=== PATIENT | female | born 1935 | race Caucasian/White ===

== ENCOUNTER 2018-12-12 10:02 | Day surgery (SDC) | payer MEDICARE, MEDICAID ==
[2018-12-11 13:22] LABS: BASOPHILS % (AUTO) 0.5 % (0-1); EOSINOPHILS # (AUTO) 0.1 X10'3 (0-0.9); HEMATOCRIT 33.9 % (35.0-45.0); HEMOGLOBIN 11.4 g/dl (12.0-16.0); LYMPHOCYTES % (AUTO) 20.3 % (21-51); MEAN CORPUSCULAR HEMOGLOBIN 31.1 PG (27.0-31.0); MEAN CORPUSCULAR HGB CONC 33.6 g/dL (33.0-36.5); MEAN CORPUSCULAR VOLUME 92.6 FL (78-98); MEAN PLATELET VOLUME 8.4 FL (7.4-10.4); MONOCYTES # (AUTO) 0.4 X10'3 (0-0.9); MONOCYTES % (AUTO) 7.8 % (2-12); NEUTROPHILS # (AUTO) 3.3 X10'3 (1.8-7.7); NEUTROPHILS % (AUTO) 69.4 % (42-75); PLATELET COUNT 198 X10'3 (140-440); RED BLOOD COUNT 3.66 X10'6 (4.20-5.60); RED CELL DISTRIBUTION WIDTH 15.7 % (11.5-14.5); WHITE BLOOD COUNT 4.8 X10'3 (4.5-11.0)
[2018-12-11 13:41] LABS: ALANINE AMINOTRANSFERASE 24 U/L (12-78); ALBUMIN 3.2 G/DL (3.4-5.0); ALBUMIN/GLOBULIN RATIO 0.9 (1.1-1.5); ALKALINE PHOSPHATASE 67 IU/L (46-116); ANION GAP 10 (8-16); ASPARTATE AMINO TRANSFERASE 12 U/L (10-37); BILIRUBIN,TOTAL 0.3 MG/DL (0.1-1.0); BLOOD UREA NITROGEN 28 MG/DL (7-18); BUN/CREATININE RATIO 18.5 (6.6-38.0); CALCIUM 8.6 MG/DL (8.5-10.1); CHLORIDE 106 MMOL/L (99-107); CHOL/HDL RATIO 2.6 (0.00-4.99); CHOLESTEROL 133 MG/DL (0-200); CREATININE 1.51 MG/DL (0.40-0.90); GLUCOSE 75 MG/DL (70-104); HDL CHOLESTEROL 52 MG/DL (35-60); INR 1.1 INR; LDL CHOLESTEROL 66 MG/DL (50-100); PARTIAL THROMBOPLASTIN TIME 27 SECONDS (22-32); SODIUM 143 MMOL/L (135-145); TOTAL CARBON DIOXIDE 27.5 MMOL/L (24-32); TOTAL PROTEIN 6.8 G/DL (6.4-8.2); TRIGLYCERIDES 110 MG/DL (20-135); eGFR 33 ML/MIN
[~2018-12-12] VITALS: Ht 162.6 cm; Wt 68.0 kg
[2018-12-12] VITALS (13 sets, daily range): BP systolic 127–173; BP diastolic 61–85
[~2018-12-12 10:02] MED LIST: ASPI-612 PO; CLON1PAT15 TD; CLOP75TA35 PO; COL100C PO; CRAN1CAP10 PO; DIVA125T31 PO; DULO-31 PO; FURO40TA4 PO; HYDR-4069 PO; HYDR2AMP PO; INSU100C4 SQ; ISOS30TA6 PO; LANTUS SQ; LEVO75TA PO; LOP25T PO; MECL12.5 PO; NITR0.4T48 SL; ONDA4TAB9 SL; POLY17PO10 PO; PRIM50TA27 PO; ROSU5TAB PO
[2018-12-12] MEDS ORDERED: acetylcysteine 200 MG/ml 4ml vial PO PRN (10:30)
[2018-12-12] MEDS ORDERED: LORazepam 0.5 MG tablet PO PRN (10:30)
[2018-12-12] MEDS ORDERED: diphenhydrAMINE 25mg capsule PO PRN (10:30)
[2018-12-12] MEDS ORDERED: sod bicarbonate 150mEq in D5W 1,150 ML IV ONE (10:30)
[2018-12-12] MEDS ORDERED: PRIM50TA42 PO (10:54)
[2018-12-12] MEDS ORDERED: ROSU10TA2 PO (10:54)
[2018-12-12] MEDS ORDERED: FURO-150 PO (10:54)
[2018-12-12] MEDS: normal saline 1000ml 1,000 ML IV SCH ×2 (11:29→20:40)
[2018-12-12] MEDS ORDERED: LIDOcaine 1% (10mg/ml)w/preservative injection 20ml MDV ONE (11:59)
[2018-12-12] MEDS ORDERED: midazolam 2 mg/2 ml injection ONE (11:59)
[2018-12-12] MEDS ORDERED: iohexol 350MG/ML 100ml bottle IV ONE ×2 (11:59→12:54)
[2018-12-12] MEDS ORDERED: nitroGLYCERIN-Tridil 50MG/D5W 250 ML IV ONE (11:59)
[2018-12-12] MEDS ORDERED: heparin 1,000unit/ml 10ml vial 10 ML ONE (11:59)
[2018-12-12] MEDS ORDERED: fentaNYL/PF 50MCG/1 ML 2ML syringe ONE (11:59)
[2018-12-12] MEDS ORDERED: iohexol 350 MG/ML 50ML vial IV ONE (11:59)
[2018-12-12] MEDS ORDERED: hydrALAZINE 20mg/ml inj. IV ONE (13:18)
[2018-12-12] MEDS ORDERED: HYDROmorphone 1 mg/ml syringe IV PRN (15:15)
[2018-12-12] MEDS: hydrALAZINE 20mg/ml inj. IV SCH ×3 (15:30→23:53)
[2018-12-12] MEDS: sod bicarbonate 150mEq in D5W 1,150 ML IV SCH ×2 (15:42→22:55)
--- NOTE | 2018-12-12 19:11 | NUR ---
Problems reprioritized. Patient report given, questions answered & plan of care reviewed with AMOL ABRAMS.
[2018-12-12] MEDS ORDERED: ondansetron 4mg rapidly disintigrating tab PO PRN (19:25)
[2018-12-12] MEDS ORDERED: polyethylene glycol 3350 17gm powd pack PO PRN (19:25)
[2018-12-12] MEDS ORDERED: nitroGLYCERIN 0.4mg SUBLingual tab SL PRN (19:25)
[2018-12-12] MEDS ORDERED: primidone 50mg tablet PO PRN (19:30)
[2018-12-12] MEDS ORDERED: insulin Lispro (HumaLOG) vial - multi-dose SQ SCH (19:35)
[2018-12-12] MEDS ORDERED: HYDROmorphone 2mg tablet PO PRN (19:35)
--- NOTE | 2018-12-12 20:57 | NUR ---
PT TRANSFERRED TO PCU AND BEDSIDE REPORT GIVEN. BELONGINGS BAG ON IT'S WAY TO ROOM 3014B NOW.
[2018-12-12] MEDS ORDERED: insulin glargine (Lantus) pen - multi-dose SQ SCH (21:00)
[2018-12-12] MEDS ORDERED: divalproex sodium 250mg tablet PO SCH (21:00)
[2018-12-12] MEDS: hydrALAZINE 25 MG tablet PO SCH (21:24)
[2018-12-12] MEDS: docusate sod 100mg capsule PO SCH (21:24)
--- NOTE | 2018-12-12 22:13 | NUR ---
Patient admitted via stretcher from short stay and oriented to room 3014B- Left groin site clean dry and intact. Patient with complaints of headache (chronically has them at home she stated) PRN pain medication administered. NS @ 100 mls in left PIV. All VSS BP 170/63 - metoprolol PO given. Will continue to monitor closely.
[2018-12-13 03:00] VITALS: BP 137/53
[2018-12-13] MEDS: hydrALAZINE 20mg/ml inj. IV SCH ×2 (03:04→08:00)
[2018-12-13 06:00] VITALS: BP 157/58
[2018-12-13] MEDS ORDERED: ROSU20TA2 PO (06:29)
[2018-12-13] MEDS: sod bicarbonate 150mEq in D5W 1,150 ML IV SCH (06:35)
[2018-12-13] MEDS: normal saline 1000ml 1,000 ML IV SCH ×2 (06:40→08:03)
[2018-12-13] MEDS ORDERED: levoTHYROXINE 75mcg tablet PO SCH (07:00)
[2018-12-13] MEDS: hydrALAZINE 25 MG tablet PO SCH (07:33)
[2018-12-13] MEDS: docusate sod 100mg capsule PO SCH (07:34)
[2018-12-13] MEDS ORDERED: furosemide 20MG tablet PO SCH (08:00)
[2018-12-13] MEDS ORDERED: isosorbide mononitrate 30mg tab.SR.24H PO SCH (08:00)
[2018-12-13] MEDS ORDERED: atorvastatin 20mg tablet PO SCH (08:00)
[2018-12-13] MEDS ORDERED: aspirin 81mg tab.chew PO SCH (08:30)
--- NOTE | 2018-12-13 10:44 | NUR ---
PROVIDED PATIENT WITH DISCHARGE INSTRUCTIONS WELL NEW PRESCRIPTION INFORMATION. PATIENT MADE AWARE SHE SHOULD FOLLOW UP WITH DR. RICHARDS IN 2 WEEKS WELL HER PRIMARY CARE PHYSICIAN. PATIENT DENIED ANY QUESTIONS OR CONCERNS. PATIENT'S CAREGIVER PRESENT AT BEDSIDE TO RECEIVE INSTRUCTIONS. IV REMOVED, CATHETER INTACT WITH MINIMAL BLEEDING, CLEAN GAUZE APPLIED AND SECURED WITH TAPE. TELE MONITOR REMOVED AND RETURNED TO [employer]. PATIENT WILL GO HOME VIA PRIVATE VEHICLE ONCE [facility] DELIVERS HER MEDICATION.
== END 2018-12-13 12:34 | disposition home or self-care (01) ==
LOC: SSTAY O 10:02 → PCU 3S 20:51 → SSTAY O 12-13 12:34
PROVIDERS: ATTEND Internal Medicine Cardiovascular Disease
DX: I25.10 Atherosclerotic heart disease of native coronary artery without angina pectoris (principal); E11.22 Type 2 diabetes mellitus with diabetic chronic kidney disease; I13.0 Hypertensive heart and chronic kidney disease with heart failure and stage 1 through stage 4 chronic kidney disease, or unspecified chronic kidney disease; N18.4 Chronic kidney disease, stage 4 (severe); I50.9 Heart failure, unspecified; E78.5 Hyperlipidemia, unspecified; Z95.0 Presence of cardiac pacemaker; Z98.890 Other specified postprocedural states; Z79.4 Long term (current) use of insulin; D64.9 Anemia, unspecified; Z90.49 Acquired absence of other specified parts of digestive tract; Z98.49 Cataract extraction status, unspecified eye; Z96.1 Presence of intraocular lens
CPT/HCPCS: 36415; 80053; 80061; 82948; 85025; 85610; 85730; 93005; 93461; 99152; 99153; A6257; J0360; J1170; J1644; J2001; J2250; J3010; J7030; Q0163; Q9967; A4620; C1769; G0378; J1815; J3490

== ENCOUNTER 2019-07-17 09:55 | Day surgery (SDC) | payer MEDICARE, MEDICAID ==
[2019-07-16 11:54] LABS: BASOPHILS % (AUTO) 0.3 % (0-1); EOSINOPHILS # (AUTO) 0.1 X10'3 (0-0.9); HEMATOCRIT 33.6 % (35.0-45.0); HEMOGLOBIN 11.4 g/dl (12.0-16.0); LYMPHOCYTES # (AUTO) 1.1 X10'3 (1.1-4.8); LYMPHOCYTES % (AUTO) 15.9 % (21-51); MEAN CORPUSCULAR HEMOGLOBIN 31.8 PG (27.0-31.0); MEAN CORPUSCULAR HGB CONC 33.9 g/dL (33.0-36.5); MEAN CORPUSCULAR VOLUME 93.7 FL (78-98); MONOCYTES # (AUTO) 0.5 X10'3 (0-0.9); MONOCYTES % (AUTO) 7.2 % (2-12); NEUTROPHILS # (AUTO) 5.2 X10'3 (1.8-7.7); NEUTROPHILS % (AUTO) 75.6 % (42-75); PLATELET COUNT 172 X10'3 (140-440); RED BLOOD COUNT 3.58 X10'6 (4.20-5.60); RED CELL DISTRIBUTION WIDTH 15.2 % (11.5-14.5); WHITE BLOOD COUNT 6.9 X10'3 (4.5-11.0)
[2019-07-16 12:01] LABS: PARTIAL THROMBOPLASTIN TIME 26 SECONDS (22-32)
[2019-07-16 12:02] LABS: ALBUMIN 3.4 G/DL (3.4-5.0); ANION GAP 5 (8-16); BLOOD UREA NITROGEN 34 MG/DL (7-18); BUN/CREATININE RATIO 19.5 (6.6-38.0); CALCIUM 8.9 MG/DL (8.5-10.1); CHLORIDE 104 MMOL/L (99-107); CREATININE 1.74 MG/DL (0.40-0.90); GLUCOSE 244 MG/DL (70-104); POTASSIUM 4.9 MMOL/L (3.5-5.1); SODIUM 138 MMOL/L (135-145); TOTAL CARBON DIOXIDE 28.9 MMOL/L (24-32); eGFR 28 ML/MIN
[2019-07-17] VITALS (10 sets, daily range): BP systolic 125–149; BP diastolic 40–78
[~2019-07-17] VITALS: Ht 165.1 cm; Wt 66.4 kg
[~2019-07-17 09:55] MED LIST changes: -CLON1PAT15 TD; -CLOP75TA35 PO; -DULO-31 PO; +FURO-150 PO; -FURO40TA4 PO; -LOP25T PO; -MECL12.5 PO; -PRIM50TA27 PO; +PRIM50TA3 PO; +ROSU20TA2 PO; -ROSU5TAB PO
[2019-07-17] MEDS ORDERED: normal saline 1,000 ML IV SCH (10:15)
[2019-07-17] MEDS ORDERED: cefazolin/dext.iso 2gm/50ml 50 ML IV ONE (10:15)
[2019-07-17] MEDS ORDERED: CLOP75TA15 PO (10:34)
[2019-07-17] MEDS ORDERED: MULT-933 PO (10:34)
[2019-07-17] MEDS ORDERED: D-MA1POW (10:34)
[2019-07-17] MEDS ORDERED: FURO-150 PO (10:34)
[2019-07-17] MEDS ORDERED: midazolam 2 mg/2 ml injection ONE (12:43)
[2019-07-17] MEDS ORDERED: fentaNYL/PF 50MCG/1 ML 2ML syringe ONE (12:43)
[2019-07-17] MEDS ORDERED: LIDOcaine 1% W/epiNEPHrine 1:100,000 20ml vial ONE (12:44)
[2019-07-17] MEDS ORDERED: ceFAZolin 1000mg inj ONE (12:52)
[2019-07-17] MEDS ORDERED: HYDROcodone/acetaminophen 10/325mg tab PO PRN (14:40)
[2019-07-17] MEDS ORDERED: normal saline 1000ml 1,000 ML IV SCH (14:40)
[2019-07-17] MEDS ORDERED: vancomycin/NS 1 GM ADD-VANTAGE 250 ML X 1 DOSE IV ONE (14:40)
[2019-07-17] MEDS ORDERED: HYDROcodone/acetaminophen 5mg/325mg tablet PO PRN (14:40)
[2019-07-17] MEDS ORDERED: OXAZEpam 15mg capsule PO PRN (14:40)
== END 2019-07-17 18:00 | disposition home or self-care (01) ==
LOC: SSTAY O 09:55
PROVIDERS: ATTEND Internal Medicine Cardiovascular Disease
DX: Z45.010 Encounter for checking and testing of cardiac pacemaker pulse generator [battery] (principal); I25.10 Atherosclerotic heart disease of native coronary artery without angina pectoris; E11.9 Type 2 diabetes mellitus without complications; E78.5 Hyperlipidemia, unspecified; I11.0 Hypertensive heart disease with heart failure; I50.9 Heart failure, unspecified; Z95.1 Presence of aortocoronary bypass graft; Z79.01 Long term (current) use of anticoagulants; Z79.82 Long term (current) use of aspirin; Z79.899 Other long term (current) drug therapy
CPT/HCPCS: 33229; 36415; 80048; 82948; 85025; 85610; 85730; 93005; 99152; 99153; C2621; J0690; J2250; J3010; J3370; J7030; A4620; A6449

== ENCOUNTER 2019-08-27 15:18 | Outpatient (CLI) | payer MEDICARE, MEDICAID ==
[~2019-08-27 15:18] MED LIST changes: +CLOP75TA15 PO; -COL100C PO; -CRAN1CAP10 PO; +D-MA1POW; -DIVA125T31 PO; +MULT-933 PO; -ONDA4TAB9 SL; -POLY17PO10 PO
[2019-08-27] MEDS ORDERED: ROSU10TA28 PO (18:57)
[2019-08-27] MEDS ORDERED: DIVA250T8 PO (18:57)
[2019-08-27] MEDS ORDERED: OMEP-50 PO (18:57)
[2019-08-27] MEDS ORDERED: D-MA1POW PO (18:57)
[2019-08-27] MEDS ORDERED: [UNRECOGNIZED DRUG - CODE] (19:04)
[2019-08-27] MEDS ORDERED: HYDR4TAB45 PO (19:04)
[2019-08-27] MEDS ORDERED: KRIL500C PO (19:04)
== END 2019-08-27 23:59 | disposition home or self-care (01) ==
LOC: VAS 15:18
PROVIDERS: ATTEND Internal Medicine Cardiovascular Disease
DX: I70.292 Other atherosclerosis of native arteries of extremities, left leg (principal); I11.0 Hypertensive heart disease with heart failure; I50.9 Heart failure, unspecified; J44.9 Chronic obstructive pulmonary disease, unspecified; E11.9 Type 2 diabetes mellitus without complications; Z95.1 Presence of aortocoronary bypass graft; Z87.891 Personal history of nicotine dependence; Z95.820 Peripheral vascular angioplasty status with implants and grafts
CPT/HCPCS: 93926; 93971

== ENCOUNTER 2019-08-27 16:47 | Inpatient (IN) | payer MEDICARE, MEDICAID ==
[~2019-08-27] VITALS: Ht 165.1 cm; Wt 72.6 kg
[2019-08-27 17:35] LABS: BASOPHILS % (AUTO) 0.5 % (0-1); EOSINOPHILS # (AUTO) 0.1 X10'3 (0-0.9); EOSINOPHILS % (AUTO) 2.4 % (0-6); HEMATOCRIT 36.2 % (35.0-45.0); HEMOGLOBIN 12.2 g/dl (12.0-16.0); LYMPHOCYTES # (AUTO) 1.1 X10'3 (1.1-4.8); LYMPHOCYTES % (AUTO) 22.3 % (21-51); MEAN CORPUSCULAR HEMOGLOBIN 31.6 PG (27.0-31.0); MEAN CORPUSCULAR HGB CONC 33.8 g/dL (33.0-36.5); MEAN CORPUSCULAR VOLUME 93.6 FL (78-98); MEAN PLATELET VOLUME 9.1 FL (7.4-10.4); MONOCYTES # (AUTO) 0.4 X10'3 (0-0.9); MONOCYTES % (AUTO) 8.4 % (2-12); NEUTROPHILS # (AUTO) 3.4 X10'3 (1.8-7.7); NEUTROPHILS % (AUTO) 66.4 % (42-75); PLATELET COUNT 180 X10'3 (140-440); RED BLOOD COUNT 3.86 X10'6 (4.20-5.60); RED CELL DISTRIBUTION WIDTH 14.7 % (11.5-14.5); WHITE BLOOD COUNT 5.1 X10'3 (4.5-11.0)
[2019-08-27 17:46] LABS: PARTIAL THROMBOPLASTIN TIME 25 SECONDS (22-32)
[2019-08-27 17:59] LABS: ALANINE AMINOTRANSFERASE 18 U/L (12-78); ALBUMIN 3.7 G/DL (3.4-5.0); ALBUMIN/GLOBULIN RATIO 0.9 (1.1-1.5); ALKALINE PHOSPHATASE 72 IU/L (46-116); ANION GAP 7 (8-16); ASPARTATE AMINO TRANSFERASE 22 U/L (10-37); BILIRUBIN,TOTAL 0.3 MG/DL (0.1-1.0); BLOOD UREA NITROGEN 43 MG/DL (7-18); BUN/CREATININE RATIO 24.4 (6.6-38.0); CALCIUM 8.9 MG/DL (8.5-10.1); CHLORIDE 105 MMOL/L (99-107); CREATININE 1.76 MG/DL (0.40-0.90); GLUCOSE 75 MG/DL (70-104); POTASSIUM 4.2 MMOL/L (3.5-5.1); SODIUM 141 MMOL/L (135-145); TOTAL CARBON DIOXIDE 29.1 MMOL/L (24-32); TOTAL PROTEIN 7.6 G/DL (6.4-8.2); eGFR 28 ML/MIN
[2019-08-27] MEDS ORDERED: ROSU10TA28 PO (18:57)
[2019-08-27] MEDS ORDERED: DIVA250T8 PO (18:57)
[2019-08-27] MEDS ORDERED: D-MA1POW PO (18:57)
[2019-08-27] MEDS ORDERED: OMEP-50 PO (18:57)
[2019-08-27] MEDS ORDERED: KRIL500C PO (19:04)
[2019-08-27] MEDS ORDERED: [UNRECOGNIZED DRUG - CODE] (19:04)
[2019-08-27] MEDS ORDERED: HYDR4TAB45 PO (19:04)
[2019-08-27] MEDS ORDERED: heparin 10,000 units/1 ML INJ IV ONE (19:50)
[2019-08-27] MEDS ORDERED: mag hydrox/Alum hydrox/simeth 30ml oral suspension PO PRN (19:50)
[2019-08-27] MEDS ORDERED: acetaminophen 325mg tablet PO PRN (19:50)
[2019-08-27] MEDS ORDERED: magnesium hydroxide 30ml (MOM) UD suspension PO PRN (19:50)
[2019-08-27] MEDS ORDERED: heparin 10,000 units/1 ML INJ IV PRN (19:50)
[2019-08-27] MEDS ORDERED: dextrose 50%-water 50ml dispensing syringe IV PRN ×2 (19:55)
[2019-08-27] MEDS ORDERED: glucagon, human recombinant 1mg kit SUBCUT PRN (19:55)
[2019-08-27] MEDS ORDERED: MESSAGE TO PHARMACY PO ONE (19:55)
[2019-08-27] MEDS ORDERED: dextrose ORAL solution 15 GM/59 ML bottle PO PRN (19:55)
[2019-08-27] MEDS: heparin 25,000 UNIT/250ml bag 250 ML IV SCH (20:21)
[2019-08-27] MEDS: normal saline 1000ml 1,000 ML IV SCH (20:23)
--- NOTE | 2019-08-27 20:35 | NUR ---
ATTEMPTED TO GIVE REPORT, WAS TOLD THEY WOULD CALL ME BACK - NO SPECIFIC TIME GIVEN
--- NOTE | 2019-08-27 20:52 | NUR ---
Patient in room ED 14. I have received report from Edel ABRAMS and had the opportunity to ask questions and assume patient care.
[2019-08-27 21:00] VITALS: BP 160/64
[2019-08-27] MEDS: insulin glargine (Lantus) pen - multi-dose SQ SCH (21:00)
--- NOTE | 2019-08-27 21:00 | NUR ---
Patient admitted to floor at 2100. Vital signs stable. Patient oriented to unit policies, call light, meal times, medication times, and phone. Bed low and locked. Tele placed on patient. Nasal swab collected.
[2019-08-27] MEDS: dextrose ORAL solution 15 GM/59 ML bottle PO PRN (21:26)
[2019-08-28] VITALS (11 sets, daily range): BP systolic 126–171; BP diastolic 47–66
[2019-08-28 02:41] LABS: BASOPHILS % (AUTO) 0.4 % (0-1); EOSINOPHILS # (AUTO) 0.1 X10'3 (0-0.9); EOSINOPHILS % (AUTO) 3.1 % (0-6); HEMATOCRIT 31.8 % (35.0-45.0); HEMOGLOBIN 10.8 g/dl (12.0-16.0); LYMPHOCYTES # (AUTO) 1.2 X10'3 (1.1-4.8); LYMPHOCYTES % (AUTO) 26.1 % (21-51); MEAN CORPUSCULAR HEMOGLOBIN 31.9 PG (27.0-31.0); MEAN CORPUSCULAR HGB CONC 33.9 g/dL (33.0-36.5); MEAN CORPUSCULAR VOLUME 94.3 FL (78-98); MEAN PLATELET VOLUME 9.2 FL (7.4-10.4); MONOCYTES # (AUTO) 0.4 X10'3 (0-0.9); MONOCYTES % (AUTO) 8.4 % (2-12); NEUTROPHILS # (AUTO) 2.8 X10'3 (1.8-7.7); PLATELET COUNT 147 X10'3 (140-440); RED BLOOD COUNT 3.38 X10'6 (4.20-5.60); RED CELL DISTRIBUTION WIDTH 14.9 % (11.5-14.5); WHITE BLOOD COUNT 4.6 X10'3 (4.5-11.0)
[2019-08-28 02:53] LABS: ALANINE AMINOTRANSFERASE 16 U/L (12-78); ALBUMIN/GLOBULIN RATIO 0.9 (1.1-1.5); ALKALINE PHOSPHATASE 63 IU/L (46-116); ANION GAP 6 (8-16); ASPARTATE AMINO TRANSFERASE 17 U/L (10-37); BILIRUBIN,TOTAL 0.2 MG/DL (0.1-1.0); BLOOD UREA NITROGEN 44 MG/DL (7-18); CALCIUM 8.5 MG/DL (8.5-10.1); CHLORIDE 109 MMOL/L (99-107); CHOL/HDL RATIO 2.4 (0.00-4.99); CHOLESTEROL 121 MG/DL (0-200); CREATININE 1.69 MG/DL (0.40-0.90); GLUCOSE 188 MG/DL (70-104); HDL CHOLESTEROL 50 MG/DL (35-60); LDL CHOLESTEROL 61 MG/DL (50-100); POTASSIUM 3.8 MMOL/L (3.5-5.1); SODIUM 144 MMOL/L (135-145); TOTAL CARBON DIOXIDE 29.4 MMOL/L (24-32); TOTAL PROTEIN 6.4 G/DL (6.4-8.2); TRIGLYCERIDES 78 MG/DL (20-135); eGFR 29 ML/MIN
--- NOTE | 2019-08-28 06:09 | NUR ---
Problems reprioritized. Patient report given, questions answered & plan of care reviewed with Jessica ABRAMS and Gisel ABRAMS.
--- NOTE | 2019-08-28 06:38 | NUR ---
Patient in room PCU 3017. I have received report from JOSE ALBERTO Owens and had the opportunity to ask questions and assume patient care.
[2019-08-28] MEDS ORDERED: HYDROmorphone 2mg tablet PO PRN (08:00)
[2019-08-28] MEDS: isosorbide mononitrate 30mg tab.SR.24H PO SCH (08:01)
[2019-08-28] MEDS: multivitamins, therapeutics tablet PO SCH (08:01)
[2019-08-28] MEDS: atorvastatin 10mg tablet PO SCH (08:01)
[2019-08-28] MEDS: clopidogrel 75mg tablet PO SCH (08:01)
[2019-08-28] MEDS: levoTHYROXINE 75mcg tablet PO SCH (08:01)
[2019-08-28] MEDS: divalproex sod 250mg ER (24-hour) tablet PO SCH (08:02)
[2019-08-28] MEDS ORDERED: midazolam 2 mg/2 ml injection IV PRN (09:50)
[2019-08-28] MEDS ORDERED: heparin 1,000 UNITS/NS 500ml 500 ML ICATH ONE (09:50)
[2019-08-28] MEDS ORDERED: LIDOcaine 1%/PF 5ML 10 MG/ML VIAL SQ ONE (09:50)
[2019-08-28] MEDS ORDERED: fentaNYL/PF 50MCG/1 ML 2ML syringe IV PRN (09:50)
[2019-08-28] MEDS ORDERED: FLU VACC QS2019-20 36MOS UP/PF 60 MCG/0.5 ML SYRINGE IMVAC ONE (10:00)
[2019-08-28] MEDS ORDERED: midazolam 2 mg/2 ml injection ONE ×2 (10:04→11:02)
[2019-08-28] MEDS ORDERED: LIDOcaine 1%/PF 5ML 10 MG/ML VIAL ONE (10:04)
[2019-08-28] MEDS ORDERED: iohexol 300mg/ml 100ml inj. ONE (10:04)
[2019-08-28] MEDS ORDERED: heparin 1,000 UNITS/NS 500ml 500 ML ONE (10:04)
[2019-08-28] MEDS ORDERED: fentaNYL/PF 50MCG/1 ML 2ML syringe ONE ×2 (10:04→11:02)
[2019-08-28] MEDS ORDERED: ondansetron/PF 4mg/2ml inj ONE (11:59)
[2019-08-28] MEDS: normal saline 1000ml 1,000 ML IV SCH ×2 (12:23→22:23)
--- NOTE | 2019-08-28 13:42 | NUR ---
Received report from angio RN. Pt in room 2009. Pt with sheath in right groin. + pedal pulse in right foot on palpation. Left pedal pulse via doppler. Pt nauseated with emesis x 1.
--- NOTE | 2019-08-28 14:10 | NUR ---
right groin without hematoma, soft to touch
--- NOTE | 2019-08-28 15:15 | NUR ---
PTT<40. right groin without hematoma, a little oozing same as she has been. Art line to be removed
--- NOTE | 2019-08-28 16:02 | NUR ---
Art line removed from right groin. Pressure held for 20minutes. pressure dressing placed. groin soft, no bleeding noted, positive palpable pedal pulse on right.
--- NOTE | 2019-08-28 16:30 | NUR ---
IV Cardizem drip discontinued at 1630.
--- NOTE | 2019-08-28 16:58 | NUR ---
Problems reprioritized. Patient report given, questions answered & plan of care reviewed with Sallie ABRAMS.
--- NOTE | 2019-08-28 17:02 | NUR ---
DM consult A1c is 9, She will need written DM education handout with verbal review and referral to outpatient DM education class on Monday morning prior to discharge. Addendum: 08/28/19 at [address] Amended: Links added.
--- NOTE | 2019-08-28 17:10 | NUR ---
1650 received report from JOSE ALBERTO Blake from the ICU. Pt arrived to unit stable and alert and oriented. No hematoma or flank pain noted with pressure dressing applied to right femoral site. Palpable pulses on bilateral feet using a doppler.
--- NOTE | 2019-08-28 17:15 | NUR ---
Pt transferred to PCU via bed and slide over to PCU bed. Pt transferred in stable condition, right groin soft without hematoma
--- NOTE | 2019-08-28 17:41 | NUR ---
Paged Dr. Mark: PAGER ID: [phone] MESSAGE: RE: Shirley Ha [id number]. Notified by television equipment operator that patient had a 12 beat run of v-tach. Patient also had a run of v-tach during angiogram today. Patient asymptomatic. Jessica [phone]
--- NOTE | 2019-08-28 18:25 | NUR ---
Patient in room PCU 3017. I have received report from Jessica ABRAMS and Gisel RN and had the opportunity to ask questions and assume patient care.
[2019-08-28] MEDS: heparin 25,000 UNIT/250ml bag 250 ML IV SCH (18:34)
--- NOTE | 2019-08-28 19:02 | NUR ---
[place]rientee documentation: I have reviewed and agree with all interventions, assessments performed and documented by Gisel ABRAMS. [place] Medication Administration: For this medication-pass time frame, all medication were reviewed, dispensed, administered and documented per hospital policy by JOSE ALBERTO Batres.
--- NOTE | 2019-08-28 19:02 | NUR ---
Right pedal pulse palpable. Left pedal pulse intact by doppler.
[2019-08-28] MEDS: insulin glargine (Lantus) pen - multi-dose SQ SCH (21:00)
[2019-08-29 03:00] VITALS: BP 118/58
[2019-08-29 06:00] VITALS: BP 143/55
--- NOTE | 2019-08-29 06:00 | NUR ---
Patient in room PCU 3017. I have received report from Katerine ABRAMS and had the opportunity to ask questions and assume patient care.
[2019-08-29 06:16] LABS: BASOPHILS % (AUTO) 0.3 % (0-1); EOSINOPHILS % (AUTO) 0.8 % (0-6); HEMATOCRIT 30.9 % (35.0-45.0); HEMOGLOBIN 10.4 g/dl (12.0-16.0); LYMPHOCYTES % (AUTO) 18.3 % (21-51); MEAN CORPUSCULAR HEMOGLOBIN 31.8 PG (27.0-31.0); MEAN CORPUSCULAR HGB CONC 33.7 g/dL (33.0-36.5); MEAN CORPUSCULAR VOLUME 94.3 FL (78-98); MEAN PLATELET VOLUME 9.5 FL (7.4-10.4); MONOCYTES # (AUTO) 0.5 X10'3 (0-0.9); MONOCYTES % (AUTO) 8.6 % (2-12); NEUTROPHILS # (AUTO) 3.9 X10'3 (1.8-7.7); PLATELET COUNT 148 X10'3 (140-440); RED BLOOD COUNT 3.28 X10'6 (4.20-5.60); WHITE BLOOD COUNT 5.4 X10'3 (4.5-11.0)
[2019-08-29 06:54] LABS: ALANINE AMINOTRANSFERASE 36 U/L (12-78); ALBUMIN 3.1 G/DL (3.4-5.0); ALKALINE PHOSPHATASE 64 IU/L (46-116); ANION GAP 14 (8-16); ASPARTATE AMINO TRANSFERASE 29 U/L (10-37); BILIRUBIN,TOTAL 0.3 MG/DL (0.1-1.0); BLOOD UREA NITROGEN 45 MG/DL (7-18); BUN/CREATININE RATIO 24.5 (6.6-38.0); CALCIUM 8.3 MG/DL (8.5-10.1); CHLORIDE 105 MMOL/L (99-107); CREATININE 1.84 MG/DL (0.40-0.90); GLUCOSE 120 MG/DL (70-104); POTASSIUM 4.3 MMOL/L (3.5-5.1); SODIUM 142 MMOL/L (135-145); TOTAL PROTEIN 6.3 G/DL (6.4-8.2); eGFR 26 ML/MIN
[2019-08-29] MEDS: atorvastatin 10mg tablet PO SCH (08:22)
[2019-08-29] MEDS: levoTHYROXINE 75mcg tablet PO SCH (08:22)
[2019-08-29] MEDS: divalproex sod 250mg ER (24-hour) tablet PO SCH (08:22)
[2019-08-29] MEDS: multivitamins, therapeutics tablet PO SCH (08:22)
[2019-08-29] MEDS: isosorbide mononitrate 30mg tab.SR.24H PO SCH (08:22)
[2019-08-29] MEDS: clopidogrel 75mg tablet PO SCH (08:22)
[2019-08-29] MEDS: normal saline 1000ml 1,000 ML IV SCH ×2 (08:23→19:47)
[2019-08-29] MEDS: oxyCODONE/APAP 5-325mg tablet PO PRN ×2 (08:37→15:43)
[2019-08-29] MEDS: simethicone 80mg chew tab PO PRN ×3 (08:37→22:10)
[2019-08-29 08:41] LABS: LIPASE 68 U/L (73-393)
[2019-08-29 11:00] VITALS: BP 132/53
--- NOTE | 2019-08-29 14:42 | NUR ---
F/u: Pt seen by RD for written/verbal DM ed w/ RD contact information provided. Pt reports sight is getting worse and has trouble reading GLU level results when she checks them. Pt reports has caregiver who helps w/ medication management and is currently in transition to new DM MD. Currently only taking 27 units Lantus/day for DM management since needs to have new MD prescriptions for Novolog which she previously took in addition to Lantus per pt report. RD encouraged to attend CDE course and for pt/caregiver to contact RD if further questions/concerns. DM consult A1c is 9, She will need written DM education handout with verbal review and referral to outpatient DM education class on Monday morning prior to discharge. Addendum: 08/29/19 at [address] Amended: Links added.
[2019-08-29 15:00] VITALS: BP 115/55
[2019-08-29] MEDS: insulin Lispro (HumaLOG) vial - multi-dose SQ SCH ×2 (15:19→19:35)
--- NOTE | 2019-08-29 17:10 | NUR ---
Paged to clarify IVF orders. Has 2 different orders for NS @ 20ml/hr and 100ml/hr. PAGER ID: [phone] MESSAGE: [phone], Nithin Ha. Has 2 different orders for NS. Pls verify if you want her running at 20ml/hr or 100ml/hr. Has been running 20ml/hr per NOC report. Thanks! Dayna [phone]
[2019-08-29 18:00] VITALS: BP 133/60
--- NOTE | 2019-08-29 18:00 | NUR ---
Patient in room PCU 3017. I have received report from DUSTY ABRAMS and had the opportunity to ask questions and assume patient care.
--- NOTE | 2019-08-29 19:14 | NUR ---
Problems reprioritized. Patient report given, questions answered & plan of care reviewed with Rosa ABRAMS.
[2019-08-29 22:00] VITALS: BP 118/55
--- NOTE | 2019-08-29 22:00 | NUR ---
Called Serene and crystal DC'd order for NS at 100 mls/hr, kept the order for NS at 20 mls/hr, he also added carb control to her diet
[2019-08-29] MEDS: insulin glargine (Lantus) pen - multi-dose SQ SCH (22:03)
[2019-08-30 02:00] VITALS: BP 139/66
[2019-08-30 06:00] VITALS: BP 137/66
--- NOTE | 2019-08-30 06:00 | NUR ---
Patient in room PCU 3017. I have received report from Rosa ABRAMS and had the opportunity to ask questions and assume patient care.
--- NOTE | 2019-08-30 06:00 | NUR ---
Problems reprioritized. Patient report given, questions answered & plan of care reviewed with DUSTY ABRAMS.
[2019-08-30 06:09] LABS: BASOPHILS % (AUTO) 0.3 % (0-1); EOSINOPHILS # (AUTO) 0.1 X10'3 (0-0.9); EOSINOPHILS % (AUTO) 2.5 % (0-6); HEMATOCRIT 29.4 % (35.0-45.0); HEMOGLOBIN 9.9 g/dl (12.0-16.0); LYMPHOCYTES # (AUTO) 1.1 X10'3 (1.1-4.8); LYMPHOCYTES % (AUTO) 20.3 % (21-51); MEAN CORPUSCULAR HEMOGLOBIN 31.6 PG (27.0-31.0); MEAN CORPUSCULAR HGB CONC 33.6 g/dL (33.0-36.5); MEAN PLATELET VOLUME 9.6 FL (7.4-10.4); MONOCYTES # (AUTO) 0.6 X10'3 (0-0.9); NEUTROPHILS # (AUTO) 3.7 X10'3 (1.8-7.7); NEUTROPHILS % (AUTO) 66.9 % (42-75); PLATELET COUNT 131 X10'3 (140-440); RED BLOOD COUNT 3.12 X10'6 (4.20-5.60); RED CELL DISTRIBUTION WIDTH 15.1 % (11.5-14.5); WHITE BLOOD COUNT 5.6 X10'3 (4.5-11.0)
[2019-08-30 06:39] LABS: ALANINE AMINOTRANSFERASE 29 U/L (12-78); ALBUMIN 2.9 G/DL (3.4-5.0); ALBUMIN/GLOBULIN RATIO 0.9 (1.1-1.5); ALKALINE PHOSPHATASE 56 IU/L (46-116); ANION GAP 9 (8-16); ASPARTATE AMINO TRANSFERASE 22 U/L (10-37); BILIRUBIN,TOTAL 0.2 MG/DL (0.1-1.0); BLOOD UREA NITROGEN 57 MG/DL (7-18); BUN/CREATININE RATIO 23.8 (6.6-38.0); CALCIUM 8.2 MG/DL (8.5-10.1); CHLORIDE 105 MMOL/L (99-107); GLUCOSE 117 MG/DL (70-104); POTASSIUM 4.8 MMOL/L (3.5-5.1); SODIUM 138 MMOL/L (135-145); TOTAL CARBON DIOXIDE 24.1 MMOL/L (24-32); TOTAL PROTEIN 6.1 G/DL (6.4-8.2); eGFR 19 ML/MIN
[2019-08-30] MEDS: isosorbide mononitrate 30mg tab.SR.24H PO SCH (07:47)
[2019-08-30] MEDS: multivitamins, therapeutics tablet PO SCH (07:47)
[2019-08-30] MEDS: atorvastatin 10mg tablet PO SCH (07:47)
[2019-08-30] MEDS: simethicone 80mg chew tab PO PRN ×2 (07:47→17:13)
[2019-08-30] MEDS: levoTHYROXINE 75mcg tablet PO SCH (07:48)
[2019-08-30] MEDS: divalproex sod 250mg ER (24-hour) tablet PO SCH (07:48)
[2019-08-30] MEDS: clopidogrel 75mg tablet PO SCH (07:48)
[2019-08-30] MEDS: insulin Lispro (HumaLOG) vial - multi-dose SQ SCH ×3 (08:04→19:06)
[2019-08-30] MEDS: normal saline 1000ml 1,000 ML IV SCH ×2 (08:30→18:30)
[2019-08-30] MEDS ORDERED: diphenhydrAMINE 50 mg/ml inj IV PRN (08:50)
[2019-08-30] MEDS: oxyCODONE/APAP 5-325mg tablet PO PRN ×2 (09:28→19:41)
[2019-08-30 11:00] VITALS: BP 128/58
[2019-08-30 15:00] VITALS: BP 119/48
--- NOTE | 2019-08-30 18:00 | NUR ---
Problems reprioritized. Patient report given, questions answered & plan of care reviewed with Lori ABRAMS.
[2019-08-30 18:30] VITALS: BP 102/56
--- NOTE | 2019-08-30 19:04 | NUR ---
Received report from Saige ABRAMS pt is awake and alert on RA, speaking on the phone
[2019-08-30] MEDS: insulin glargine (Lantus) pen - multi-dose SQ SCH (21:07)
[2019-08-30 22:30] VITALS: BP 119/58
[2019-08-31 02:30] VITALS: BP 135/62
[2019-08-31] MEDS: normal saline 1000ml 1,000 ML IV SCH ×2 (04:00→16:28)
[2019-08-31 06:00] VITALS: BP 134/65
--- NOTE | 2019-08-31 06:11 | NUR ---
Gave report to Saige ABRAMS pt is resting on RA in no apparent distress, call light and items of freq use within reach.
--- NOTE | 2019-08-31 07:00 | NUR ---
Patient in room PCU 3017. I have received report from Lori ABRAMS and had the opportunity to ask questions and assume patient care.
[2019-08-31 07:26] LABS: BASOPHILS % (AUTO) 0.3 % (0-1); EOSINOPHILS # (AUTO) 0.2 X10'3 (0-0.9); EOSINOPHILS % (AUTO) 3.1 % (0-6); HEMATOCRIT 30.5 % (35.0-45.0); HEMOGLOBIN 10.3 g/dl (12.0-16.0); LYMPHOCYTES # (AUTO) 1.2 X10'3 (1.1-4.8); LYMPHOCYTES % (AUTO) 19.6 % (21-51); MEAN CORPUSCULAR HEMOGLOBIN 32.2 PG (27.0-31.0); MEAN CORPUSCULAR HGB CONC 33.6 g/dL (33.0-36.5); MEAN CORPUSCULAR VOLUME 95.8 FL (78-98); MONOCYTES # (AUTO) 0.6 X10'3 (0-0.9); PLATELET COUNT 129 X10'3 (140-440); RED BLOOD COUNT 3.19 X10'6 (4.20-5.60); RED CELL DISTRIBUTION WIDTH 14.9 % (11.5-14.5); WHITE BLOOD COUNT 5.9 X10'3 (4.5-11.0)
[2019-08-31 07:47] LABS: ALANINE AMINOTRANSFERASE 25 U/L (12-78); ALBUMIN/GLOBULIN RATIO 0.9 (1.1-1.5); ALKALINE PHOSPHATASE 59 IU/L (46-116); ANION GAP 11 (8-16); ASPARTATE AMINO TRANSFERASE 18 U/L (10-37); BILIRUBIN,TOTAL 0.2 MG/DL (0.1-1.0); BLOOD UREA NITROGEN 60 MG/DL (7-18); BUN/CREATININE RATIO 27.4 (6.6-38.0); CHLORIDE 105 MMOL/L (99-107); CREATININE 2.19 MG/DL (0.40-0.90); GLUCOSE 117 MG/DL (70-104); POTASSIUM 4.7 MMOL/L (3.5-5.1); SODIUM 138 MMOL/L (135-145); TOTAL CARBON DIOXIDE 22.5 MMOL/L (24-32); TOTAL PROTEIN 6.3 G/DL (6.4-8.2); eGFR 22 ML/MIN
[2019-08-31] MEDS ORDERED: methylnaltrexone br 12mg/0.6ml inj***SubQ only SQ ONE (08:55)
[2019-08-31] MEDS: divalproex sod 250mg ER (24-hour) tablet PO SCH (09:33)
[2019-08-31] MEDS: clopidogrel 75mg tablet PO SCH (09:36)
[2019-08-31] MEDS: isosorbide mononitrate 30mg tab.SR.24H PO SCH (09:36)
[2019-08-31] MEDS: atorvastatin 10mg tablet PO SCH (09:36)
[2019-08-31] MEDS: multivitamins, therapeutics tablet PO SCH (09:36)
[2019-08-31] MEDS: levoTHYROXINE 75mcg tablet PO SCH (09:37)
[2019-08-31] MEDS: insulin Lispro (HumaLOG) vial - multi-dose SQ SCH ×3 (09:41→19:10)
[2019-08-31] MEDS ORDERED: HYDROcodone/acetaminophen 5mg/325mg tablet PO PRN (09:55)
[2019-08-31 11:00] VITALS: BP 146/63
[2019-08-31 15:00] VITALS: BP 144/70
--- NOTE | 2019-08-31 18:00 | NUR ---
Problems reprioritized. Patient report given, questions answered & plan of care reviewed with José RN.
--- NOTE | 2019-08-31 18:30 | NUR ---
Patient in room PCU 3017. I have received report from Saige ABRAMS and had the opportunity to ask questions and assume patient care.
[2019-08-31 19:00] VITALS: BP 153/76
[2019-08-31] MEDS: insulin glargine (Lantus) pen - multi-dose SQ SCH (22:20)
--- NOTE | 2019-08-31 22:38 | NUR ---
NOTIFIED PAGER ID: [phone] MESSAGE: Shirley Ha, [phone]- pt states she can not take Odell because it makes her very sick. she requests either dilaudid or Percocet for pain.
[2019-08-31 23:00] VITALS: BP 145/82
--- NOTE | 2019-08-31 23:56 | NUR ---
PAGER ID: [phone] MESSAGE: Shirley Ha, [phone]- may we house convenience this pt?
[2019-09-01] MEDS: oxyCODONE/APAP 5-325mg tablet PO PRN (00:49)
[2019-09-01 03:00] VITALS: BP 113/61
[2019-09-01 05:25] LABS: BASOPHILS % (AUTO) 0.3 % (0-1); EOSINOPHILS # (AUTO) 0.1 X10'3 (0-0.9); EOSINOPHILS % (AUTO) 1.6 % (0-6); HEMATOCRIT 29.1 % (35.0-45.0); HEMOGLOBIN 9.7 g/dl (12.0-16.0); LYMPHOCYTES # (AUTO) 1.2 X10'3 (1.1-4.8); LYMPHOCYTES % (AUTO) 18.7 % (21-51); MEAN CORPUSCULAR HEMOGLOBIN 31.5 PG (27.0-31.0); MEAN CORPUSCULAR HGB CONC 33.3 g/dL (33.0-36.5); MEAN CORPUSCULAR VOLUME 94.7 FL (78-98); MEAN PLATELET VOLUME 9.8 FL (7.4-10.4); MONOCYTES # (AUTO) 0.6 X10'3 (0-0.9); MONOCYTES % (AUTO) 9.8 % (2-12); NEUTROPHILS # (AUTO) 4.4 X10'3 (1.8-7.7); NEUTROPHILS % (AUTO) 69.6 % (42-75); PLATELET COUNT 130 X10'3 (140-440); RED BLOOD COUNT 3.08 X10'6 (4.20-5.60); RED CELL DISTRIBUTION WIDTH 14.8 % (11.5-14.5); WHITE BLOOD COUNT 6.3 X10'3 (4.5-11.0)
[2019-09-01 05:46] LABS: ALANINE AMINOTRANSFERASE 21 U/L (12-78); ALBUMIN 2.8 G/DL (3.4-5.0); ALBUMIN/GLOBULIN RATIO 0.8 (1.1-1.5); ALKALINE PHOSPHATASE 57 IU/L (46-116); ANION GAP 10 (8-16); ASPARTATE AMINO TRANSFERASE 13 U/L (10-37); BILIRUBIN,TOTAL 0.3 MG/DL (0.1-1.0); BLOOD UREA NITROGEN 48 MG/DL (7-18); BUN/CREATININE RATIO 28.2 (6.6-38.0); CALCIUM 8.1 MG/DL (8.5-10.1); CHLORIDE 109 MMOL/L (99-107); GLUCOSE 60 MG/DL (70-104); POTASSIUM 4.5 MMOL/L (3.5-5.1); SODIUM 140 MMOL/L (135-145); TOTAL CARBON DIOXIDE 21.2 MMOL/L (24-32); TOTAL PROTEIN 6.1 G/DL (6.4-8.2); eGFR 29 ML/MIN
[2019-09-01 06:00] VITALS: BP 140/63
--- NOTE | 2019-09-01 06:36 | NUR ---
Problems reprioritized. Patient report given, questions answered & plan of care reviewed with Saige ABRAMS.
[2019-09-01] MEDS: normal saline 1000ml 1,000 ML IV SCH ×2 (06:46→21:40)
--- NOTE | 2019-09-01 07:00 | NUR ---
primary Neto Moulton notified of glucose 50
[2019-09-01] MEDS: dextrose ORAL solution 15 GM/59 ML bottle PO PRN (07:07)
[2019-09-01] MEDS: isosorbide mononitrate 30mg tab.SR.24H PO SCH (09:02)
[2019-09-01] MEDS: divalproex sod 250mg ER (24-hour) tablet PO SCH (09:02)
[2019-09-01] MEDS: multivitamins, therapeutics tablet PO SCH (09:02)
[2019-09-01] MEDS: atorvastatin 10mg tablet PO SCH (09:02)
[2019-09-01] MEDS: levoTHYROXINE 75mcg tablet PO SCH (09:02)
[2019-09-01] MEDS: clopidogrel 75mg tablet PO SCH (09:02)
[2019-09-01] MEDS: levoFLOXACIN-Levaquin 250mg/D5 50 ML IV SCH (10:27)
[2019-09-01 11:00] VITALS: BP 129/59
--- NOTE | 2019-09-01 14:32 | NUR ---
Initial: Pt s/p angioplasty of L SFA and popliteal arteries r/t blockage. PO 75-100% carb controlled diet past 3 days w/ slight decrease to 50% last night overall meeting needs. Noted to have abdominal pain and burping; receiving simethicone passing gas and having BM's per MD note. LBM 08/30. Will continue to monitor. Rec: 1. continue carb controlled diet 2. bowel care as needed 3. wt per rx Addendum: 09/01/19 at [address] Amended: Links added.
[2019-09-01 15:00] VITALS: BP 128/72
--- NOTE | 2019-09-01 17:59 | NUR ---
Patient in room PCU 3017. I have received report from Saige ABRAMS and had the opportunity to ask questions and assume patient care. All patient's needs met at this time.
--- NOTE | 2019-09-01 17:59 | NUR ---
Paged Dr Mark MESSAGE: Re: Shirley Ha [phone]. FYI Pt's chart says allergy to Codeine, but pt says it was a mild reaction and is willing to try the robitussin w/codeine. Thanks Susan [phone]
--- NOTE | 2019-09-01 18:12 | NUR ---
Problems reprioritized. Patient report given, questions answered & plan of care reviewed with Susan ABRAMS.
[2019-09-01] MEDS: lactobacillus rhamnosus 10,000 MMU CELLS/CAPSULE PO SCH (21:30)
[2019-09-01] MEDS: ondansetron/PF 4mg/2ml inj IV PRN (21:39)
[2019-09-01] MEDS: insulin glargine (Lantus) pen - multi-dose SQ SCH (21:39)
[2019-09-01 22:00] VITALS: BP 141/67
[2019-09-01] MEDS: guaiFENesin/codeine phos 10ml UD oral syrup PO PRN (22:54)
[2019-09-02 02:00] VITALS: BP 134/64
[2019-09-02] MEDS: guaiFENesin/codeine phos 10ml UD oral syrup PO PRN ×3 (04:33→21:08)
--- NOTE | 2019-09-02 06:30 | NUR ---
Problems reprioritized. Patient report given, questions answered & plan of care reviewed with Jessica ABRAMS. All patient's needs met at this time.
--- NOTE | 2019-09-02 06:34 | NUR ---
Patient in room PCU 3017. I have received report from JOSE ALBERTO Davis and had the opportunity to ask questions and assume patient care. Patient awake in bed with no complaints at this time. All immediate needs met.
[2019-09-02 07:00] VITALS: BP 127/61
[2019-09-02] MEDS: levoTHYROXINE 75mcg tablet PO SCH (08:21)
[2019-09-02] MEDS: atorvastatin 10mg tablet PO SCH (08:21)
[2019-09-02] MEDS: clopidogrel 75mg tablet PO SCH (08:21)
[2019-09-02] MEDS: divalproex sod 250mg ER (24-hour) tablet PO SCH (08:21)
[2019-09-02] MEDS: multivitamins, therapeutics tablet PO SCH (08:21)
[2019-09-02] MEDS: levoFLOXACIN-Levaquin 250mg/D5 50 ML IV SCH (08:22)
[2019-09-02] MEDS: lactobacillus rhamnosus 10,000 MMU CELLS/CAPSULE PO SCH ×2 (08:22→21:09)
[2019-09-02] MEDS: isosorbide mononitrate 30mg tab.SR.24H PO SCH (08:22)
[2019-09-02] MEDS: insulin Lispro (HumaLOG) vial - multi-dose SQ SCH (08:30)
[2019-09-02 09:39] LABS: BASOPHILS % (AUTO) 0.3 % (0-1); EOSINOPHILS # (AUTO) 0.1 X10'3 (0-0.9); EOSINOPHILS % (AUTO) 2.7 % (0-6); HEMATOCRIT 29.5 % (35.0-45.0); HEMOGLOBIN 9.9 g/dl (12.0-16.0); LYMPHOCYTES # (AUTO) 0.9 X10'3 (1.1-4.8); LYMPHOCYTES % (AUTO) 17.7 % (21-51); MEAN CORPUSCULAR HGB CONC 33.7 g/dL (33.0-36.5); MEAN CORPUSCULAR VOLUME 95.1 FL (78-98); MEAN PLATELET VOLUME 9.7 FL (7.4-10.4); MONOCYTES # (AUTO) 0.4 X10'3 (0-0.9); MONOCYTES % (AUTO) 8.1 % (2-12); NEUTROPHILS # (AUTO) 3.6 X10'3 (1.8-7.7); NEUTROPHILS % (AUTO) 71.2 % (42-75); PLATELET COUNT 132 X10'3 (140-440); RED CELL DISTRIBUTION WIDTH 15.2 % (11.5-14.5); WHITE BLOOD COUNT 5.1 X10'3 (4.5-11.0)
[2019-09-02 10:00] LABS: ALBUMIN 2.7 G/DL (3.4-5.0); ANION GAP 6 (8-16); BLOOD UREA NITROGEN 41 MG/DL (7-18); BUN/CREATININE RATIO 24.1 (6.6-38.0); CALCIUM 8.1 MG/DL (8.5-10.1); CHLORIDE 108 MMOL/L (99-107); GLUCOSE 132 MG/DL (70-104); POTASSIUM 4.7 MMOL/L (3.5-5.1); SODIUM 139 MMOL/L (135-145); TOTAL CARBON DIOXIDE 25.3 MMOL/L (24-32); eGFR 29 ML/MIN
[2019-09-02 11:00] VITALS: BP 150/66
--- NOTE | 2019-09-02 11:30 | NUR ---
Patient in room PCU 3017. I have received report from JOSE ALBERTO Lopez and had the opportunity to ask questions and will assume patient care after pt transferred from PCU.
--- NOTE | 2019-09-02 11:30 | NUR ---
New orders from Dr. Mrak: Discontinue NS @ 70 ml/hour, miralax, ducolax suppository PRN constipation, Laxix 20 mg IV BID start now.
--- NOTE | 2019-09-02 11:30 | NUR ---
Problems reprioritized. Patient report given, questions answered & plan of care reviewed with Allison RN. Patient stable at transfer of care.
--- NOTE | 2019-09-02 11:50 | NUR ---
Pt arrived to room 360A from U
[2019-09-02] MEDS: dextrose ORAL solution 15 GM/59 ML bottle PO PRN ×3 (12:06→13:10)
[2019-09-02] MEDS ORDERED: bisacodyl 10mg suppository rectal RC PRN (12:25)
[2019-09-02] MEDS: furosemide 20 MG/2 ML vial IV SCH ×2 (12:36→21:09)
[2019-09-02] MEDS: ondansetron/PF 4mg/2ml inj IV PRN ×2 (16:43→23:45)
--- NOTE | 2019-09-02 18:45 | NUR ---
Problems reprioritized. Patient report given, questions answered & plan of care reviewed with Kim Alvarez RN.
--- NOTE | 2019-09-02 18:50 | NUR ---
Patient in room EDISON 360. I have received report from TRACY ABRAMS and had the opportunity to ask questions and assume patient care.
[2019-09-02 20:00] VITALS: BP 152/64
[2019-09-02] MEDS ORDERED: polyethylene glycol 3350 17gm powd pack PO SCH (21:00)
[2019-09-02] MEDS: insulin glargine (Lantus) pen - multi-dose SQ SCH (22:30)
[2019-09-02] MEDS: oxyCODONE/APAP 5-325mg tablet PO PRN (23:45)
[2019-09-03] VITALS: BP 116/59
--- NOTE | 2019-09-03 06:30 | NUR ---
Problems reprioritized. Patient report given, questions answered & plan of care reviewed with ERIK ABRAMS.
--- NOTE | 2019-09-03 06:59 | NUR ---
Patient in room EDISON 360. I have received report from Uche ABRAMS and had the opportunity to ask questions and assume patient care.
[2019-09-03] MEDS ORDERED: sacubitril/valsartan 24mg-26mg tablet PO SCH (08:00)
[2019-09-03] MEDS ORDERED: carVEDilol 3.125mg tablet PO SCH (08:00)
[2019-09-03 08:15] VITALS: BP 145/67
[2019-09-03] MEDS: furosemide 20 MG/2 ML vial IV SCH (08:58)
[2019-09-03] MEDS: clopidogrel 75mg tablet PO SCH (08:59)
[2019-09-03] MEDS: atorvastatin 10mg tablet PO SCH (08:59)
[2019-09-03] MEDS: divalproex sod 250mg ER (24-hour) tablet PO SCH (08:59)
[2019-09-03] MEDS: lactobacillus rhamnosus 10,000 MMU CELLS/CAPSULE PO SCH (08:59)
[2019-09-03] MEDS: levoTHYROXINE 75mcg tablet PO SCH (08:59)
[2019-09-03] MEDS: multivitamins, therapeutics tablet PO SCH (08:59)
[2019-09-03] MEDS: isosorbide mononitrate 30mg tab.SR.24H PO SCH (08:59)
[2019-09-03] MEDS: insulin Lispro (HumaLOG) vial - multi-dose SQ SCH ×2 (09:10→13:24)
[2019-09-03] MEDS ORDERED: levoFLOXACIN 250mg tablet PO SCH (11:00)
[2019-09-03 13:57] VITALS: BP 137/71
--- NOTE | 2019-09-03 14:39 | NUR ---
Patient D/c to [facility] per DR Mark. Patient stable, alert and oriented. Report given to Joy ABRAMS. Pt left the hopital via medi-van accompanied by trencher driver at 1425.
[2019-09-05] MEDS ORDERED: levoFLOXACIN 250mg tablet PO SCH (11:00)
== END 2019-09-03 14:25 | DRG 252 ==
LOC: ER 16:48 → ED HOLD 19:52 → PCU 3S 21:08 → CICU 2S 08-28 14:22 → PCU 3S 08-28 17:26 → SUR 3N 09-02 11:51
PROVIDERS: ADMIT Internal Medicine; ATTEND Internal Medicine
PROC: 047L3ZZ Dilation of Left Femoral Artery, Percutaneous Approach (ICD-10-PCS; principal; 2019-08-28)
PROC: 047N3ZZ Dilation of Left Popliteal Artery, Percutaneous Approach (ICD-10-PCS; 2019-08-28)
PROC: B41G1ZZ Fluoroscopy of Left Lower Extremity Arteries using Low Osmolar Contrast (ICD-10-PCS; 2019-08-28)
PROC: 3E02340 Introduction of Influenza Vaccine into Muscle, Percutaneous Approach (ICD-10-PCS; 2019-08-28)
DX: T82.898A Other specified complication of vascular prosthetic devices, implants and grafts, initial encounter (principal); I50.23 Acute on chronic systolic (congestive) heart failure; J18.9 Pneumonia, unspecified organism; I13.0 Hypertensive heart and chronic kidney disease with heart failure and stage 1 through stage 4 chronic kidney disease, or unspecified chronic kidney disease; K56.7 Ileus, unspecified; N17.9 Acute kidney failure, unspecified; I70.202 Unspecified atherosclerosis of native arteries of extremities, left leg; E11.22 Type 2 diabetes mellitus with diabetic chronic kidney disease; Y83.1 Surgical operation with implant of artificial internal device as the cause of abnormal reaction of the patient, or of later complication, without mention of misadventure at the time of the procedure; N18.3 Chronic kidney disease, stage 3 (moderate); D63.8 Anemia in other chronic diseases classified elsewhere; F32.9 Major depressive disorder, single episode, unspecified; F41.9 Anxiety disorder, unspecified; G89.29 Other chronic pain; K59.00 Constipation, unspecified; M54.9 Dorsalgia, unspecified; E03.9 Hypothyroidism, unspecified; E11.51 Type 2 diabetes mellitus with diabetic peripheral angiopathy without gangrene; E78.00 Pure hypercholesterolemia, unspecified; E78.5 Hyperlipidemia, unspecified; I25.10 Atherosclerotic heart disease of native coronary artery without angina pectoris; Z79.02 Long term (current) use of antithrombotics/antiplatelets; Z79.4 Long term (current) use of insulin; Z23 Encounter for immunization; Z79.899 Other long term (current) drug therapy; Z87.891 Personal history of nicotine dependence; Y92.89 Other specified places as the place of occurrence of the external cause; Z88.5 Allergy status to narcotic agent; Z90.49 Acquired absence of other specified parts of digestive tract; Z95.1 Presence of aortocoronary bypass graft; Z82.3 Family history of stroke
CPT/HCPCS: 36415; 37224; 71046; 74176; 80048; 80053; 80061; 82948; 83036; 83690; 83880; 84443; 85025; 85610; 85730; 87081; 93005; 93306; 93922; 93926; 93971; 97110; 97112; 97116; 97161; 97530; 97535; 99152; 99153; 99285; C1725; C1769; C1887; C1894; G0378; J1644; J1815; J1940; J1956; J2212; J2250; J2405; J3010; J7030; Q2037; Q9967